=== PATIENT | female | born 2000 | race Caucasian/White ===

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

== ENCOUNTER → 2020-06-28 | Outpatient (CLI) | payer OTHER ==
[~2020-06-28] MED LIST: NOHOMEMEDICATIONS
== END ==
LOC: M.LAB 11:25
PROVIDERS: ATTEND Surgery
DX: Z01.812 Encounter for preprocedural laboratory examination (principal); Z20.822 Contact with and (suspected) exposure to COVID-19; L05.91 Pilonidal cyst without abscess

== ENCOUNTER → 2020-07-03 | Day surgery (SDC) | payer OTHER ==
[~2020-07-03] MED LIST changes: +ROXICODONE5 M2 PO
[2020-07-03 06:38] LABS: HEMOGLOBIN 13.8 gm/dL (12.0-15.0)
--- NOTE | 2020-07-09 12:06 | PATH ---
[address] [address] PATHOLOGY RPT PROCEDURE Name: JAY CHAPMAN Room: [facility] M.R.#: [id number] Admission: 07/03/20 Date of : 00 Discharge: Report #: [id number] Path Case #: [id number] [facility] Accession Number: [id number] . 01 Material submitted: . back - PILONIDAL CYST LOWER BACK. Modifiers: lower . 02 Diagnosis: Pilonidal cyst lower back: - Benign skin with dermal chronic inflammation, stromal hemosiderin deposition, fibrosis and entrapped hair associated with foreign body-type granulomatous response typical of pilonidal sinus/cyst site. (JAROCHO/db; 07/08/2020) LBQ 07/08/2020 1234 Local . 02 Electronically signed: . Preston Preston MD, Pathologist NPI- [id number] . 01 Gross description: . Received in formalin labeled "Bettie, Jay, pilonidal cyst lower back" is an unoriented irregular, phipps yellow lobular portion of fibroadipose tissue measuring 3.1 x 1.9 x 1.6 cm with attached unoriented phipps white pigmented skin measuring 3.1 x 0.5 cm. The surgical resection margin is inked black and the specimen is serially sectioned to reveal a phipps-yellow lobular cut surface with an area of phipps-pink irregular fibrous tissue measuring 1.9 x 1.1 x 0.9 cm. Cut In Worker sections of the specimen are submitted in cassette A1.([facility]; 07/05/2020) GZA/GZA 07/05/2020 1209 Local . 02 Pathologist provided ICD-10: L98.9, L90.5 . 02 CPT . 630974 Specimen Comment: A courtesy copy of this report has been sent to [phone] Specimen Comment: [phone] Specimen Comment: Report sent to / DR FERRARA Specimen Comment: A duplicate report has been generated due to demographic updates. Performed at: 01 [facility] [address] [place] [address] [address], [place] [id number] MD Mauro Allred MD Phone: [phone] Performed at: 02 [facility] [address] [place], [place] [id number] [address] [address] PATHOLOGY RPT PROCEDURE Name: JAY CHAPMAN Room: [facility]#: [id number] Admission: 07/03/20 Date of : 00 Discharge: Report #: [id number] Path Case #: [id number] MD Preston Preston MD Phone: [phone]
--- NOTE | 2020-07-09 19:42 | OP ---
[facility] [address] [place] [address] OPERATIVE REPORT Name: JAY CHAPMAN [id number] Admission: 07/03/20 Attend Phys: Yaneth Graves Discharge: Date of : 00 Report #: [id number] THIS REPORT FOR: cc: Adelfo Schmidt John E. DO ~ Brendan Peng DO DATE OF SERVICE: 07/03/2020 PREOPERATIVE DIAGNOSIS: Pilonidal disease. POSTOPERATIVE DIAGNOSIS: Pilonidal disease. PROCEDURE PERFORMED: Pilonidal disease excision. INDICATIONS: The patient is a 19-year-old female who was seen as an outpatient on multiple occasions with an infected pilonidal-associated abscess. She has undergone several incision and drainages with resolution. We discussed the risks and benefits of pilonidal disease excision in the office and in the preoperative area. Risks of bleeding, infection, pain and scarring were discussed. The patient and her mother voiced understanding and elected to proceed with surgery. DESCRIPTION OF PROCEDURE: The patient was taken to the operating theater and placed in supine position. Bilateral SCDs were placed and preoperative antibiotics were given. General anesthesia was induced without complication. The patient was then placed in the prone position. Both buttocks were taped apart and the upper gluteal cleft was prepped and draped in the standard sterile fashion. A time-out was performed and all were in agreement. A 6 cm elliptical incision was made overlying the pilonidal disease at the upper gluteal cleft. Dissection was carried straight down using electrocautery to the sacral fascia. Once this was encountered, the skin and subcutaneous tissue including the disease was completely excised. This was sent for specimen. Hemostasis was obtained using electrocautery. The wound was irrigated. There were no further sinus tracts or cysts surrounding the wound bed. Next, the wound was closed in multiple layers beginning in the deep layer, 2-0 Vicryl was used in a simple interrupted fashion. An additional layer of 2-0 Vicryl in a simple interrupted fashion was used to close the wound. Deep dermal sutures were then used. These were 3-0 Vicryl in a simple interrupted fashion. Skin was then closed using a 4-0 Monocryl. A Prevena wound VAC could not be placed as the smallest Prevena wound VAC was a 13 cm wound VAC. The surgical incision was then dressed with Steri-Strips and covered with a gauze and an abdominal pad. This concluded the procedure and counts were correct x2. COMPLICATIONS: [place] [address] OPERATIVE REPORT Name: JAY CHAPMAN NURY Room: [facility] M.R.#: [id number] Admission: 07/03/20 Attend Phys: Yaneth Graves Discharge: Date of : 00 Report #: [id number] EBL: 20cc FINDINGS: Pilonidal disease. DRAINS: None. DISPOSITION: The patient was extubated in the operating theater and taken to the PACU in stable condition. <ELECTRONICALLY SIGNED> By: Brendan Peng DO 07/09/20 1942 1500 1528Brendan Pneg DO /nt
== END | disposition home or self-care (01) ==
LOC: M.SUR
PROVIDERS: ATTEND Surgery
DX: L05.91 Pilonidal cyst without abscess (principal); L98.9 Disorder of the skin and subcutaneous tissue, unspecified; L90.5 Scar conditions and fibrosis of skin